=== PATIENT | male | born 1970 | race African-American/Black ===

== ENCOUNTER 2018-04-16 19:33 | Observation (INO) | payer SELFPAY ==
[2018-04-16 19:47] LABS: #Eosinphils 0.3 thou/uL (0.0-0.7); #Lymphocytes 1.8 thou/uL (1.20-3.40); #Monocytes 0.5 thou/uL (0.11-0.59); #Neutrophils 2.4 thou/uL (1.40-6.50); %Basophils 0.6 % (0.0-1.0); %Eosinophils 6.5 % (0.0-10.0); %Monocytes 9.6 % (0.0-10.0); %Neutrophils 47.4 % (42.0-75.0); Hemoglobin 14.1 g/dL (14.0-18.0); Mean Corpuscular HGB CONC 32.7 g/dL (32.0-36.0); Mean Corpuscular Hemoglobin 29.5 pg (27.0-31.0); Mean Corpuscular Volume 90.3 fL (78.0-98.0); Mean Platelet Volume 8.3 fL (7.4-10.4); Platelet Count 228 thou/uL (130-400); RBC Distribution Width 13.2 % (11.5-14.5); Red Blood Cell (RBC) Count 4.79 mill/uL (4.70-6.10); White Blood Cell (WBC) Count 5.1 thou/uL (4.8-10.8)
[2018-04-16 19:55] LABS: INR-International Normal Ratio 0.9; PTT 25.2 SEC (22.9-36.1); Prothrombin Time 12.4 SEC (12.0-14.7)
--- NOTE | 2018-04-16 20:01 | RAD ---
CHEST ONE VIEW: HISTORY: Pain. COMPARISON: None. FINDINGS: Normal cardiac silhouette. The pulmonary vessels and hilum are normal. The costophrenic angles are clear. No masses or consolidation. No pneumothorax or osseous abnormalities. IMPRESSION: No acute cardiopulmonary process. POS: [facility]
[2018-04-16 20:03] LABS: ALT (SGPT) 20 U/L (8-55); AST (SGOT) 22 U/L (5-34); Albumin 3.7 g/dL (3.5-5.0); Alkaline Phosphatase 43 U/L (40-150); Anion Gap 10 mmol/L (10-20); BUN (Urea Nitrogen) 14 mg/dL (8.9-20.6); Bilirubin, Total Less than 0.2 mg/dL (0.2-1.2); Calc. Creatinine Clearance 0 mL/min (70-130); Calcium 8.7 mg/dL (7.8-10.44); Carbon Dioxide 22 mmol/L (22-29); Chloride 109 mmol/L (98-107); Estimated GFR-MDRD 84; Globulin 2.1 g/dL (2.4-3.5); Glucose 117 mg/dL (70-105); Potassium 3.9 mmol/L (3.5-5.1); Protein, Total 5.8 g/dL (6.0-8.3); Sodium 137 mmol/L (136-145)
[2018-04-16 20:07] LABS: CKMB 3.5 ng/mL (0-6.6); Troponin I 0.042 ng/mL (< 0.028)
--- NOTE | 2018-04-16 20:36 | PDOC.FPRHP ---
- History of Present Illness Chief Complaint: chest pain History of Present Illness: This is a 47yo previously healthy M presenting for eval of CP. Onset was this afternoon while driving. Position R side/substernal with no radiation. Of dull/ pressure quality, initially rated at 8/10 in severity. EMS provided ASA and sublingual nitro x1 which relieved the pain to 0/10. Reportedly EKG via EMS showed 1mm ST elevation in several leads however EKG in ED shows no obvious elevation. Pt denies any hx of cardiac disease but has similar episodes of CP with exercise that is alleviated by rest. Of note pt went to the ED at the [facility] in february. Reports they did EKG, CXR, and labs that were only significant for an "enlarged heart" ED Course: nitro x1, ASA - Allergies/Adverse Reactions Allergies Allergy/AdvReac Type Severity Reaction Status Date / Time Penicillins Allergy itching Verified 04/16/18 22:20 - Home Medications Medication Instructions Recorded Confirmed Type No Known 04/16/18 04/16/18 History - History PMHx: none, does not go to doctor often PSHx: none FHx: DM, HTN, IN (mother of IN at 63yo) Social: 7 pack years for cigarettes, EtOH- weekly social drinking , denies drug use - Review of Systems General: denies: fever/chills, fatigue ENT: denies: nasal congestion, rhinorrhea Respiratory: denies: cough, congestion, shortness of breath Cardiovascular: denies: chest pain, palpitation, edema, paroxysmal nocturnal dyspnea, orthopnea Gastrointestinal: denies: nausea, vomiting Genitourinary: denies: dysuria, polyuria Skin: denies: rashes, lesions Musculoskeletal: denies: pain, tenderness Neurological: denies: syncope, seizure - Vital signs BP: [118/83] HR: [68] RR: [16] Tmax: [98.5] Pox: [98]% on [RA] Wt: [93] - Physical Exam Constitutional: NAD, awake, alert and oriented HEENT: normocephalic and atraumatic, EOMI, grossly normal vision, grossly normal hearing Neck: supple, trachea midline Chest: no-tender to palpation Heart: RRR, normal S1/S2, no murmurs/rubs/gallops, pulses present, no edema Lungs: CTAB, no respiratory distress, good air movement Abdomen: soft, non-tender Musculoskeletal: normal structure, normal tone Neurological: no focal deficit, normal sensation Skin: good turgor, capillary refill <2 seconds Heme/Lymphatic: no unusual bruising or bleeding, no purpura Psychiatric: normal mood and affect, good judgment and insight FMR H&P: Results - Labs Result Diagrams: 04/16/18 19:41 04/17/18 02:00 Lab results: WBC 5.1 thou/uL (4.8-10.8) 04/16/18 19:41 Hgb 14.1 g/dL (14.0-18.0) 04/16/18 19:41 Hct 43.2 % (42.0-52.0) 04/16/18 19:41 MCV 90.3 fL (78.0-98.0) 04/16/18 19:41 Plt Count 228 thou/uL (130-400) 04/16/18 19:41 Neutrophils % 47.4 % (42.0-75.0) 04/16/18 19:41 Sodium 137 mmol/L (136-145) 04/16/18 19:41 Potassium 3.9 mmol/L (3.5-5.1) 04/16/18 19:41 Chloride 109 mmol/L (98-107) H 04/16/18 19:41 Carbon Dioxide 22 mmol/L (22-29) 04/16/18 19:41 BUN 14 mg/dL (8.9-20.6) 04/16/18 19:41 Creatinine 1.12 mg/dL (0.6-1.3) 04/16/18 19:41 Glucose 117 mg/dL (70-105) H 04/16/18 19:41 Calcium 8.7 mg/dL (7.8-10.44) 04/16/18 19:41 Total Bilirubin Less than 0.2 mg/dL (0.2-1.2) L 04/16/18 19:41 AST 22 U/L (5-34) 04/16/18 19:41 ALT 20 U/L (8-55) 04/16/18 19:41 Alkaline Phosphatase 43 U/L (40-150) 04/16/18 19:41 CK-MB (CK-2) 3.5 ng/mL (0-6.6) 04/16/18 19:41 Serum Total Protein 5.8 g/dL (6.0-8.3) L 04/16/18 19:41 Albumin 3.7 g/dL (3.5-5.0) 04/16/18 19:41 FMR H&P: Upper Level - Pertinent history 47 yr old male smoker with no hx of medical care presents to the ER for chest pain. States it started this evening while driving to work and pulled over. Reports some SOB as well. Called EMS and pain went away after nitro. He reports a similar pain whie running in the past. He has smoked 1/2 ppd for last 15 years. Family hx significant for mother with DM and of IN at age 63. - Pertinent findings PE: Cardiac:: RRR, no M/R/G Lungs: CTAB, no W/R/R, good air movement Chest: non reproducible pain EKG: normal sinus rhythm with quetionable < [address] elevation in lead II. - Plan Date/Time: 04/16/182035 I, [Oxana Turner], have evaluated this patient and agree with findings/plan as outlined by international trade manager resident. Pertinent changes/additions are listed here. 47 yr old AAM with 7 pack year history here for chest pain. Typical angina -cardiology called from ER, no current intervention indicated -trend trops and recheck EKG for new pain -check lipids, mag, phos -AM fasting BMP -NPO after midnight -AM stress test -consult cards in AM -start statin -ASA qAM Tobacco abuse -offer nicotine patch -smoking cessation counseling Alcohol use -last drink yesterday -reports no use of alcohol use during the week DVT ppx: SCDs and lovenox unless plans for cath GI ppx: none code status: FULL PCP: none, city call Attending Addendum - Attending Addendum Date/Time: 04/17/18 0507 I personally evaluated the patient 04/16/2018 in ER and discussed the management with Dr. Silva I agree with the History, Examination, Assessment and Plan documented above with any addition or exceptions noted below. 47 yo AA male smoker with recent onset chest pain relieved with SL NTG. Patient heart score [address] changes anterior leads will be placed observation for trending with troponin and further stratification in AM
[2018-04-16] MEDS ORDERED: Ondansetron ODT 4 MG TAB SL PRN (21:59)
[2018-04-16] MEDS ORDERED: Ondansetron PF 4 MG/2 ML Vial IVP PRN (21:59)
[2018-04-16] MEDS ORDERED: Acetaminophen 325 MG TAB PO PRN (21:59)
[2018-04-16] MEDS ORDERED: Sodium Chloride 0.9% 1,000 ML IV SCH (22:00)
[2018-04-16 23:25] LABS: CKMB 3.5 ng/mL (0-6.6); Troponin I 0.204 ng/mL (< 0.028)
[2018-04-17 02:35] LABS: CKMB 3.1 ng/mL (0-6.6); Troponin I 0.158 ng/mL (< 0.028)
[2018-04-17 02:44] LABS: Anion Gap 10 mmol/L (10-20); BUN (Urea Nitrogen) 13 mg/dL (8.9-20.6); Calc. Creatinine Clearance 114 mL/min (70-130); Calcium 8.7 mg/dL (7.8-10.44); Carbon Dioxide 25 mmol/L (22-29); Chloride 109 mmol/L (98-107); Estimated GFR-MDRD Greater than 90; Glucose 106 mg/dL (70-105); Potassium 3.8 mmol/L (3.5-5.1); Sodium 140 mmol/L (136-145)
[2018-04-17] MEDS ORDERED: Atorvastatin Calcium 20 MG TAB PO SCH ×2 (03:15→21:00)
--- NOTE | 2018-04-17 06:11 | PDOC.FM ---
- Subjective Subjective: Feeling well. Chest pain has resolved. Eager to go home. - Objective MAR Reviewed: Yes Vital Signs & Weight: Vital Signs (12 hours) Temp Pulse Resp BP Pulse Ox 04/17/18 04:00 97.8 F 59 L 17 108/69 96 04/16/18 22:01 98.5 F 62 14 119/70 97 Weight Weight 94.12 kg I&O: 04/15/18 04/16/18 04/17/18 06:59 06:59 06:59 Intake Total 950 Output Total 1300 Balance -350 Result Diagrams: 04/16/18 19:41 04/17/18 02:00 <Nena Edwards - Last Filed: 04/17/18 13:29> - Objective Vital Signs & Weight: Vital Signs (12 hours) Temp Pulse Resp BP Pulse Ox 04/18/18 07:35 97.6 F 60 16 112/68 97 04/18/18 03:50 97.8 F 61 19 111/64 98 04/17/18 23:57 97.4 F L 57 L 15 110/55 L 96 Weight Weight 93.531 kg I&O: 04/17/18 04/18/18 04/19/18 06:59 06:59 06:59 Intake Total 950 2120 Output Total 1300 2080 Balance -350 40 Result Diagrams: 04/16/18 19:41 04/17/18 02:00 <Ge De La Cruz - Last Filed: 04/18/18 08:58> Phys Exam - Physical Examination Constitutional: NAD Neck: supple Respiratory: no wheezing, clear to auscultation bilateral Cardiovascular: RRR, no significant murmur Gastrointestinal: soft, non-tender, positive bowel sounds Musculoskeletal: no edema, pulses present Neurological: moves all 4 limbs Psychiatric: normal affect, A&O x 3 Deviation from normal: Multiple tattoos <Nena Edwards - Last Filed: 04/17/18 13:29> Dx/Plan (1) Elevated troponin Code(s): R74.8 - ABNORMAL LEVELS OF OTHER SERUM ENZYMES Status: Acute (2) Tobacco abuse Code(s): Z72.0 - TOBACCO USE Status: Chronic (3) Alcohol abuse Code(s): F10.10 - ALCOHOL ABUSE, UNCOMPLICATED Status: Chronic - Plan Plan: Typical angina - Cardiology called from ER, no current intervention indicated - Trops 0.042-> 0.204-> 0.158 - Mg, Ph, TSH, FLP wnl - NPO for stress test today - Consider Cardiology consult - Continue Atorvastatin and ASA - Will increase Atorvastatin to 40mg and decrease ASA to 81mg Tobacco abuse - Continue PRN nicotine patch - Encourage smoking cessation Alcohol use - Last drink 04/15 - No hx of withdrawal Code status: FULL DVT ppx: Lovenox <Nena Edwards - Last Filed: 04/17/18 13:29> Attending Addendum - Attending Addendum Date/Time: 04/18/18 0858 I personally evaluated the patient and discussed the management with Dr. Edwards. I agree with the History, Examination, Assessment and Plan documented above with any addition or exceptions noted below. <Ge De La Cruz - Last Filed: 04/18/18 08:58>
[2018-04-17 06:55] LABS: Cardiac Risk 3.4 (Less than 4.5); Magnesium 2.1 mg/dL (1.6-2.6); Phosphorus 2.8 mg/dL (2.3-4.7)
[2018-04-17] MEDS ORDERED: Aspirin 325 mg Enteric Coated Tablet PO SCH (09:00)
[2018-04-17] MEDS: Famotidine 20 MG TAB PO SCH ×2 (10:11→20:45)
--- NOTE | 2018-04-17 12:27 | NM ---
CARDIAC SPECT HISTORY: A 47-year-old male with chest pain. TECHNIQUE: A myocardial perfusion scan was performed using the single isotope one day with technetium 99m sestam ibi, and 11 millicuries was injected intravenously for the rest exam, followed by 33 millicuries for the stress study. Exercise stress was monitored and interpreted by Dr. Silva. FINDINGS: A homogeneous tracer distribution is seen in the myocardial segments on the rest images. There is a small area of decreased tracer localization in the distal anteroseptal wall, on the stress images. Gated SPECT LVEF: 60%. Wall motion exam: normal. IMPRESSION: Small area of distal anteroseptal wall ischemia with complete reversibility. POS: [facility]
[2018-04-17] MEDS ORDERED: Communication Order-Pharmacy FS SCH (14:45)
--- NOTE | 2018-04-17 18:30 | CON ---
DATE OF CONSULTATION: 04/17/2018 HISTORY: Je Almonte is a 47-year-old black male who denies any previous cardiac problems or chest discomfort. He was driving to work yesterday and had onset of central chest pressure. When he got to work and tried to get up and walk, he would have recurrence of this central chest pressure associated with shortness of breath and diaphoresis, but no nausea or vomiting. If he would sit and rest, discomfort would resolve in a few minutes. This scenario repeated itself multiple times and ultimately EMS was called. He was given aspirin as well as sublingual nitroglycerin and he has not had any further episodes since that time. Today, he underwent a treadmill testing and exercised for 10 minutes without chest pain or ST segment changes. Cardiolite revealed a small area of decreased radiotracer in the distal anteroseptal wall with complete reversibility. PAST MEDICAL HISTORY: He denies any history of hypertension, diabetes or hypercholesterolemia. MEDICATIONS: None. ALLERGIES: PENICILLIN. SOCIAL HISTORY: Smokes one half pack per day. He drinks 12 beers on the weekend. He works at [employer]. FAMILY HISTORY: Mother had myocardial infarction. REVIEW OF SYSTEMS: Twelve-point review of systems is unremarkable. PHYSICAL EXAMINATION: VITAL SIGNS: 106/67, pulse of 60. HEENT: PERRL. NECK: Supple. CHEST: Clear. CARDIAC: S1, S2 normal, without any S3, S4 or murmurs. Carotid upstrokes normal, without any bruits. ABDOMEN: Normal bowel sounds, without tenderness, organomegaly. EXTREMITIES: Revealed no clubbing, cyanosis or edema. NEUROLOGIC: Grossly intact. SKIN: Warm and dry. LABORATORY AND X-RAY FINDINGS: EKG revealed early repolarization with no acute findings. CBC is unremarkable. INR 0.9. Sodium 140, potassium 3.8, chloride 109, carbon dioxide 25, BUN 13, creatinine 1.04. Troponin I maximum is 0.204. CK-MB is normal x3. TSH is normal. Cholesterol 148, triglycerides 216, HDL 43 , LDL 62. IMPRESSION: 1. Probable acute coronary syndrome with exertional discomfort and diaphoresis with shortness of breath, relieved with rest, on multiple occasions yesterday. 2. Smoker. 3. Positive family history. 4. EtOH use. PLAN: The situation was discussed with patient. It was recommended he undergo cardiac catheterization. Risks of this were discussed including , myocardial infarction, stroke, transfusion, limb loss, renal loss, vascular injury, etc. Risks of stent placement were discussed including , myocardial infarction, emergent CABG, restenosis, stent thrombosis, vessel perforation, etc. I will place bare metal stents since I am uncertain of this patient's reliability long-term with lack of health insurance. STEFANIA
[2018-04-17] MEDS ORDERED: Atorvastatin Calcium 40 MG TAB PO SCH (21:00)
[2018-04-18 04:08] VITALS: BMI 31.3
[2018-04-18] MEDS: Famotidine 20 MG TAB PO SCH (05:24)
[2018-04-18] MEDS ORDERED: Sodium Chloride 0.9% 1,000 ML IV SCH ×2 (06:00→08:50)
[2018-04-18] MEDS ORDERED: Lidocaine 1% (PF) 30 ML VIAL ONE (06:24)
[2018-04-18] MEDS ORDERED: Heparin 10,000 UNITS/1 ML VIAL ONE (06:24)
--- NOTE | 2018-04-18 06:32 | PDOC.FM ---
- Subjective Subjective: Denies chest pain, shortness of breath. Understands plan for cardiac cath today. No questions or concerns. - Objective MAR Reviewed: Yes Vital Signs & Weight: Vital Signs (12 hours) Temp Pulse Resp BP Pulse Ox 04/18/18 03:50 97.8 F 61 19 111/64 98 04/17/18 23:57 97.4 F L 57 L 15 110/55 L 96 Weight Weight 93.531 kg I&O: 04/16/18 04/17/18 04/18/18 06:59 06:59 06:59 Intake Total 950 2120 Output Total 1300 2080 Balance -350 40 Result Diagrams: 04/16/18 19:41 04/17/18 02:00 <Nena Edwards - Last Filed: 04/18/18 09:02> - Objective Vital Signs & Weight: Vital Signs (12 hours) Temp Pulse Resp BP Pulse Ox 04/18/18 07:35 97.6 F 60 16 112/68 97 Weight Weight 93.531 kg I&O: 04/17/18 04/18/18 04/19/18 06:59 06:59 06:59 Intake Total 950 2120 700 Output Total 1300 2080 0 Balance -350 40 700 Result Diagrams: 04/16/18 19:41 04/17/18 02:00 <Ge De La Cruz - Last Filed: 04/18/18 15:55> Phys Exam - Physical Examination Constitutional: NAD Neck: supple Respiratory: no wheezing, clear to auscultation bilateral Cardiovascular: RRR, no significant murmur Gastrointestinal: soft, non-tender, positive bowel sounds Musculoskeletal: no edema Psychiatric: normal affect, A&O x 3 <Nena Edwards - Last Filed: 04/18/18 09:02> Dx/Plan (1) Elevated troponin Code(s): R74.8 - ABNORMAL LEVELS OF OTHER SERUM ENZYMES Status: Acute (2) Tobacco abuse Code(s): Z72.0 - TOBACCO USE Status: Chronic (3) Alcohol abuse Code(s): F10.10 - ALCOHOL ABUSE, UNCOMPLICATED Status: Chronic - Plan Plan: Typical angina - Trops 0.042-> 0.204-> 0.158 - Stress Test notable for reversible ischemia - Cardiology consulted, apprec recs - Continue Atorvastatin and ASA - Plan for heart cath today by Dr Silva Tobacco abuse - Continue PRN nicotine patch - Encourage smoking cessation Alcohol use - Last drink 04/15 - No hx of withdrawal Code status: FULL DVT ppx: Lovenox <Nena Edwards - Last Filed: 04/18/18 09:02> Attending Addendum - Attending Addendum Date/Time: 04/18/18 6946 I personally discussed the management with Dr. Edwards today. Mr. Almonte was unavailable for exam at time of rounds today. I agree with the History, Examination, Assessment and Plan documented above with any addition or exceptions noted below. <Ge De La Cruz - Last Filed: 04/18/18 15:55>
[2018-04-18] MEDS ORDERED: Midazolam HCl 2 mg/2 ml Vial ONE (07:58)
[2018-04-18] MEDS ORDERED: Fentanyl 100 MCG/2 ML VIAL ONE (07:58)
[2018-04-18] MEDS ORDERED: Bivalirudin 250 MG VIAL ONE (08:15)
[2018-04-18] MEDS ORDERED: Clopidogrel Bisulfate 300 MG TAB ONE (08:30)
[2018-04-18] MEDS ORDERED: Nitroglycerin 0.4 MG TAB (25 Tab Bottle) SL PRN (08:49)
[2018-04-18] MEDS ORDERED: Clopidogrel Bisulfate 75 MG TAB PO SCH (09:00)
[2018-04-18] MEDS ORDERED: Aspirin 81 mg Enteric Coated Tablet PO SCH (09:00)
[2018-04-18] MEDS ORDERED: Iopamidol 370 76% 50 ML VIAL FS ONE (12:56)
[2018-04-18] MEDS ORDERED: Iopamidol 370 76% 100 ML VIAL ONE (12:56)
--- NOTE | 2018-04-18 15:51 | EKG ---
Test Reason : POST STENTS Blood Pressure : / mmHG Vent. Rate : 055 BPM Atrial Rate : 055 BPM P-R Int : 202 ms QRS Dur : 102 ms QT Int : 434 ms P-R-T Axes : 053 008 -10 degrees QTc Int : [address] elevation, consider early repolarization, pericarditis, or injury Abnormal ECG Confirmed by HUSAM BARBOZA ([id number]) on 04/18/2018 3:50:50 PM Referred By: JONNY Confirmed By:HUSAM BARBOZA
[2018-04-18 16:03] VITALS: BP 112/63; TEMP 97.3
[2018-04-18] MEDS ORDERED: Acetaminophen 325 MG TAB PO PRN (16:39)
[2018-04-18] MEDS ORDERED: Atorvastatin Calcium 10 MG TAB PO SCH (21:00)
[2018-04-18] MEDS ORDERED: Atorvastatin Calcium 20 MG TAB PO SCH (21:00)
--- NOTE | 2018-04-19 01:26 | DIS-2 ---
DATE OF ADMISSION: 04/16/2018 DATE OF DISCHARGE: 04/18/2018 RESIDENT: Elle Edwards, PGY-1. ADMITTING ATTENDING: Mil Cote MD DISCHARGE ATTENDING: Ge De La Cruz M.D. CONSULTATIONS: Cardiology. PROCEDURES: 1. Chest x-ray, no acute cardiopulmonary process. 2. Stress test nuclear medicine small area of distal anterior septal wall ischemia with complete rev ersibility. 3. Cardiac catheterization one-vessel coronary artery disease, (left anterior descending) mildly imp aired ventricular function. Successful PCI/bare metal stent of the proximal to mid left anterior raheem cending coronary artery. PRIMARY DIAGNOSIS: Typical angina. SECONDARY DIAGNOSES: 1. Tobacco abuse. 2. Alcohol use. DISCHARGE MEDICATIONS: 1. Aspirin 81 mg daily. 2. Atorvastatin 20 mg at bedtime. 3. Pepcid 20 mg b.i.d. 4. Plavix 75 mg daily. 5. Metoprolol 12.5 mg daily. DISCONTINUED MEDICATIONS: None. HISTORY OF PRESENT ILLNESS AND HOSPITAL COURSE: Mr. Almonte is a 47-year-old male who presented with ty pical chest pain. EKG via EMS showed [address] elevation in several leads; however, EKG in the ED s howed no ST segment changes. Troponins were trended 0.042, 0.158. CK-MB was trended 3.5, 3.5, 3.1. A fasting lipid panel was unremarkable with the exception of elevated triglycerides 216. Stress adeline t that was performed, notable for reversible ischemia. Cardiology was consulted. Cardiac catheteriz ation was performed by Dr. Silva. Stent was placed in LAD. Patient tolerated procedure well. Patient has a history of tobacco and alcohol use. He has had no history of withdrawal, and hospitali zation was unremarkable. DISPOSITION: Stable. DISCHARGE INSTRUCTIONS: 1. Location: Home. 2. Diet: Heart healthy. 3. Activity: No restrictions. 4. Follow up with PCP within 3-7 days. 5. Follow up with Dr. Silva.
== END 2018-04-18 18:42 | disposition home or self-care (01) ==
LOC: ERS 19:33 → 2SW 20:23 → ERS 21:46
PROVIDERS: ADMIT Family Medicine; ATTEND Family Medicine
PROC: 02703DZ Dilation of Coronary Artery, One Artery with Intraluminal Device, Percutaneous Approach (ICD-10-PCS; principal; 2018-04-18)
PROC: 4A023N7 Measurement of Cardiac Sampling and Pressure, Left Heart, Percutaneous Approach (ICD-10-PCS; 2018-04-18)
PROC: B2111ZZ Fluoroscopy of Multiple Coronary Arteries using Low Osmolar Contrast (ICD-10-PCS; 2018-04-18)
DX: I25.119 Atherosclerotic heart disease of native coronary artery with unspecified angina pectoris (principal); F17.210 Nicotine dependence, cigarettes, uncomplicated; F10.10 Alcohol abuse, uncomplicated; Z79.82 Long term (current) use of aspirin; Z79.02 Long term (current) use of antithrombotics/antiplatelets; Z79.899 Other long term (current) drug therapy; Z88.0 Allergy status to penicillin
CPT/HCPCS: 36415; 71045; 78452; 80048; 80053; 80061; 82553; 83735; 84100; 84146; 84443; 84484; 85025; 85347; 85610; 85730; 90471; 90686; 90732; 92928; 93005; 93010; 93017; 93458; 99152; A9500; C1769; C1876; C1887; G0008; G0009; G0378; J0583; J1644; J2001; J2250; J3010

== ENCOUNTER 2018-04-24 17:45 | Inpatient (IN) | payer SELFPAY ==
[2018-04-24] MEDS ORDERED: Nitroglycerin 0.4 MG TAB (25 Tab Bottle) ONE (18:17)
[2018-04-24 18:34] LABS: #Basophils 0.1 thou/uL (0.0-0.2); #Eosinphils 0.5 thou/uL (0.0-0.7); #Lymphocytes 4.3 thou/uL (1.20-3.40); #Neutrophils 3.4 thou/uL (1.40-6.50); %Basophils 1.1 % (0.0-1.0); %Eosinophils 5.2 % (0.0-10.0); %Lymphocytes 46.4 % (21.0-51.0); %Monocytes 10.8 % (0.0-10.0); %Neutrophils 36.5 % (42.0-75.0); Mean Corpuscular HGB CONC 33.8 g/dL (32.0-36.0); Mean Corpuscular Hemoglobin 30.3 pg (27.0-31.0); Mean Corpuscular Volume 89.7 fL (78.0-98.0); Mean Platelet Volume 9.4 fL (7.4-10.4); Platelet Count 296 thou/uL (130-400); RBC Distribution Width 13.3 % (11.5-14.5); Red Blood Cell (RBC) Count 5.28 mill/uL (4.70-6.10); White Blood Cell (WBC) Count 9.2 thou/uL (4.8-10.8)
[2018-04-24 18:43] LABS: ALT (SGPT) 22 U/L (8-55); AST (SGOT) 22 U/L (5-34); Albumin 4.3 g/dL (3.5-5.0); Alkaline Phosphatase 55 U/L (40-150); Anion Gap 13 mmol/L (10-20); BUN (Urea Nitrogen) 13 mg/dL (8.9-20.6); Bilirubin, Total 0.3 mg/dL (0.2-1.2); Calc. Creatinine Clearance 0 mL/min (70-130); Carbon Dioxide 25 mmol/L (22-29); Chloride 103 mmol/L (98-107); Estimated GFR-MDRD 70; Globulin 2.7 g/dL (2.4-3.5); Glucose 116 mg/dL (70-105); Potassium 3.2 mmol/L (3.5-5.1); Sodium 138 mmol/L (136-145)
[2018-04-24 18:48] LABS: Troponin I Less than 0.010 ng/mL (< 0.028)
[2018-04-24] MEDS ORDERED: Morphine 4 MG/ML VIAL ONE ×2 (18:56→21:24)
--- NOTE | 2018-04-24 19:21 | RAD ---
CHEST ONE VIEW 04/24/18 INDICATION: High risk complaint of chest pain. COMPARISON: Prior exam dated 04/16/18. FINDINGS: Lungs are clear. Cardiomediastinal silhouette is within normal limits. No acute osseous abnormality i s evident. IMPRESSION: No acute cardiopulmonary abnormality. POS: [facility]
[2018-04-24] MEDS ORDERED: Nitroglycerin 50 MG/250 ML BOT 250 ML ONE (19:24)
[2018-04-24] MEDS ORDERED: Fentanyl 100 MCG/2 ML VIAL ONE (19:58)
[2018-04-24 20:36] LABS: Bilirubin Negative (Negative); Blood, Urine Negative (Negative); Clarity CLEAR (Clear); Glucose, Urine (Dipstick) Negative (Negative); Leukocyte Negative (Negative); Nitrite Negative (Negative); Protein, Urine (Dipstick) Trace mg/dL (Neg-Trace); Specific Gravity, Urine 1.014 (1.002-1.036); Urobilinogen 0.2 mg/dL (0.2-1.0)
[2018-04-24 20:47] LABS: Amphetamine Not Detected (NotDetected); Barbiturates Screen Not Detected (NotDetected); Benzodiazepine Screen Not Detected (NotDetected); Cocaine Metabolite Screen Not Detected (NotDetected); Medtox Control Line Valid? VALID (VALID); Medtox Reader # READER 1; Methadone Not Detected (NotDetected); Methamphetamine Not Detected (NotDetected); Opiate Screen Detected (NotDetected); Oxycodone Screen Not Detected (NotDetected); Phencyclidine (PCP) Not Detected (NotDetected); THC/Cannabinoid Screen Not Detected (NotDetected); Tricyclic Screen Not Detected (NotDetected)
[2018-04-24 22:18] LABS: Troponin I 0.675 ng/mL (< 0.028)
[2018-04-24] MEDS ORDERED: Ondansetron ODT 4 MG TAB SL PRN (22:51)
[2018-04-24] MEDS ORDERED: Ondansetron PF 4 MG/2 ML Vial IVP PRN (22:51)
[2018-04-24] MEDS ORDERED: Acetaminophen 325 MG TAB PO PRN (22:51)
[2018-04-24 23:10] VITALS: BMI 32.7
[2018-04-24] MEDS: Nitroglycerin 2% Ointment 1 INCH/1 GM Packet TOP SCH (23:43)
[2018-04-24] MEDS: Sodium Chloride 0.9% 1,000 ML IV SCH (23:43)
[2018-04-24 23:56] LABS: Cardiac Risk 2.6 (Less than 4.5)
[2018-04-25] MEDS ORDERED: Enoxaparin Sodium 100 MG/ML SYRINGE SC SCH ×2 (00:15→09:00)
[2018-04-25 01:00] LABS: Troponin I 4.032 ng/mL (< 0.028)
[2018-04-25] MEDS ORDERED: Morphine 4 MG/ML VIAL IV PRN (01:28)
[2018-04-25] MEDS: Morphine 2 MG/ML SYRINGE SLOW IVP PRN ×2 (01:57→09:54)
[2018-04-25 04:23] LABS: #Lymphocytes 1.1 thou/uL (1.20-3.40); #Monocytes 0.6 thou/uL (0.11-0.59); #Neutrophils 7.1 thou/uL (1.40-6.50); %Basophils 0.4 % (0.0-1.0); %Eosinophils 0.5 % (0.0-10.0); %Lymphocytes 12.8 % (21.0-51.0); %Monocytes 6.4 % (0.0-10.0); %Neutrophils 79.9 % (42.0-75.0); Mean Corpuscular HGB CONC 31.8 g/dL (32.0-36.0); Mean Corpuscular Hemoglobin 29.2 pg (27.0-31.0); Mean Corpuscular Volume 91.8 fL (78.0-98.0); Mean Platelet Volume 9.4 fL (7.4-10.4); Platelet Count 270 thou/uL (130-400); RBC Distribution Width 13.2 % (11.5-14.5); Red Blood Cell (RBC) Count 5.15 mill/uL (4.70-6.10); White Blood Cell (WBC) Count 8.9 thou/uL (4.8-10.8)
[2018-04-25 05:38] LABS: Albumin 4.3 g/dL (3.5-5.0); Anion Gap 13 mmol/L (10-20); BUN (Urea Nitrogen) 12 mg/dL (8.9-20.6); BUN/Creatinine Ratio 10.91; Calc. Creatinine Clearance 112 mL/min (70-130); Calcium 9.2 mg/dL (7.8-10.44); Carbon Dioxide 26 mmol/L (22-29); Chloride 100 mmol/L (98-107); Estimated GFR-MDRD 86; Glucose 117 mg/dL (70-105); Phosphorus 2.9 mg/dL (2.3-4.7); Potassium 5.6 mmol/L (3.5-5.1); Sodium 133 mmol/L (136-145)
[2018-04-25] MEDS ORDERED: Nitroglycerin 2% Ointment 1 INCH/1 GM Packet TOP SCH (06:00)
[2018-04-25] MEDS: Nitroglycerin 2% Ointment 1 INCH/1 GM Packet TOP SCH (08:39)
[2018-04-25] MEDS: Famotidine 20 MG TAB PO SCH ×2 (08:39→20:28)
[2018-04-25] MEDS: Sodium Chloride 0.9% 1,000 ML IV SCH (08:40)
--- NOTE | 2018-04-25 08:44 | HP ---
CHIEF COMPLAINT: Chest pain. HISTORY OF PRESENT ILLNESS: This is a 47-year-old male with past medical history of coronary artery disease status post stents x3, presenting with chest pain which started at 4:00 p.m. on the day of ad mission. Per the patient, the chest pain came on suddenly, was located on the substernal chest and i t was pressure-like in nature, did not radiate to any part of his body. The patient stated that the chest pain was constant and for the last hour prior to the chest pain coming on, he was arguing his d aughter and the patient then came to the hospital to be evaluated. At this point, the patient denies any fever, headaches, dizziness, palpitations, abdominal pain; however, the patient admits to having some shortness of breath and diaphoresis and chest pain. Of note, the patient was seen on last week Monday prior to this visit and the patient had chest pa in, so a cardiac catheterization was done and there was stenosis in the LAD and RCA and 3 stents were placed by bulk folder. REVIEW OF SYSTEMS: Positive for chest pain, diaphoresis and shortness of breath, otherwise as docume nted in the HPI. All other systems were reviewed and are negative. FAMILY HISTORY: Reviewed, noncontributory to this visit. SURGICAL HISTORY: Stents x3. PSYCHIATRIC HISTORY: No previous psychiatric history. SOCIAL HISTORY: The patient currently smokes cigarettes. Patient smokes about a pack per day. The patient denies any illicit drug use. The patient states that he drinks occasionally. ALLERGIES: PENICILLINS. CURRENT MEDICATIONS: The patient takes atorvastatin 20 mg, aspirin 81 mg, clopidogrel 75 mg, Pepcid 20 mg and metoprolol 25 mg. PHYSICAL EXAMINATION: VITAL SIGNS: Blood pressure 119/85, pulse is 97, respiratory rate of 30, O2 sat of 100 on room air. GENERAL: The patient is lying in bed, does not appear to be in any acute distress at this time. HEENT: Normocephalic, atraumatic. Pupils are equally round and reactive to light. Extraocular move ments are intact. No scleral icterus. NECK: Trachea is midline. Full range of motion. No JVD. LUNGS: Clear to auscultation bilaterally. No wheezing. No rales, no rhonchi is appreciated. CARDIOVASCULAR: Regular rate and rhythm, no murmurs, no gallops, no rubs appreciated. ABDOMEN: Soft, nontender, nondistended, positive bowel sounds in all quadrants. No peritoneal signs . EXTREMITIES: 5/5 upper extremity strength, 5/5 lower extremity strength, good pulses bilaterally at the upper and lower extremities. NEUROLOGIC: Cranial nerves II-XII grossly intact. No neurologic deficit noted. SKIN: Warm, dry and intact. No rashes. PSYCHIATRIC: Alert, oriented x3, not in acute distress. EKG showed normal sinus rhythm with a rate of 49. T waves peaked in V3 and V4. Compared to previous EKG this is unchanged. Three other EKGs were done and the patient's EKG has progressively gotten be tter. IMAGING: The patient's chest x-ray shows no pneumothorax, no hemothorax, no masses, no cardiomegaly, no congestive heart failure. No effusion, no free air. EMERGENCY DEPARTMENT COURSE: The patient received morphine, fentanyl, normal saline, nitroglycerin, aspirin. LABORATORY DATA: WBC 9.2, hemoglobin 16.0, hematocrit 47.3, platelets 296. Sodium 138, potassium is 3.2, chloride 103, carbon dioxide 25, anion gap of 13, BUN is 13, creatinine is 1.32, estimated GFR 70, glucose 116. Troponin is less than 0.010, repeat troponin was 0.675 and the third troponin was 4 .032. ASSESSMENT AND PLAN: 1. This is a 47-year-old male being admitted for [id number] elevation myocardial infarction. At this point, the patient has been admitted to the IMCU. We have consulted Cardiology. The patient h as been started on aspirin, Plavix, Lovenox and metoprolol. We are going to continue these medicatio ns and bulk folder will come and evaluate the patient in the morning. We are going to make the livan ent n.p.o. just in case if the patient is going to go for cardiac catheterization. Of note, the livan ent recently had a cardiac catheterization done a week ago; therefore, we are unsure what Cardiology recommendation is going to be referred. We will follow up with bulk folder regarding their recommen dation. 2. Chest pain, status post stents x3. Currently, the patient is having chest pain and the patient h as elevated troponins. We will continue the patient on his home medications and we will continue to monitor the patient very closely. The patient has been admitted to the IM. 3. Deep venous thrombosis and gastrointestinal prophylaxis. 4. Acute kidney injury likely due to dehydration. Patient is currently on normal saline. We will c ontinue this management. We will follow up on morning labs. 5. Electrolyte abnormality We will replete the patient's potassium and will follow up on morning lab s.
[2018-04-25] MEDS ORDERED: Aspirin 81 mg Enteric Coated Tablet PO SCH (09:00)
[2018-04-25] MEDS ORDERED: Clopidogrel Bisulfate 75 MG TAB PO SCH (09:00)
[2018-04-25] MEDS ORDERED: Lidocaine 1% (PF) 30 ML VIAL ONE (10:07)
[2018-04-25] MEDS ORDERED: Heparin 10,000 UNITS/1 ML VIAL ONE ×3 (10:15→12:08)
[2018-04-25] MEDS ORDERED: Fentanyl 100 MCG/2 ML VIAL ONE (10:30)
[2018-04-25] MEDS ORDERED: Midazolam HCl 2 mg/2 ml Vial ONE (10:37)
[2018-04-25] MEDS ORDERED: Iopamidol 370 76% 100 ML VIAL ONE (10:43)
[2018-04-25] MEDS ORDERED: Iopamidol 370 76% 50 ML VIAL FS ONE (10:43)
[2018-04-25] MEDS ORDERED: TICAGRELOR 90 MG TABLET ONE (10:45)
[2018-04-25] MEDS ORDERED: Aggrastat 12.5 MG/250 ML 250 ML ONE (10:48)
[2018-04-25] MEDS ORDERED: Nitroglycerin 0.4 MG TAB (25 Tab Bottle) SL PRN (11:39)
[2018-04-25] MEDS ORDERED: Morphine 2 MG/ML SYRINGE SLOW IVP PRN (11:39)
[2018-04-25] MEDS ORDERED: Sodium Chloride 0.9% 1,000 ML IV SCH (11:42)
[2018-04-25] MEDS ORDERED: Aggrastat 12.5 MG/250 ML 250 ML IVPB SCH (11:45)
--- NOTE | 2018-04-25 12:20 | CON ---
DATE OF CONSULTATION: 04/25/2018 HISTORY OF PRESENT ILLNESS: Je Almonte is a 47-year-old black male that I initially evaluated last week. He was driving to work on 04/16/2018 started having onset of central chest pressure. He got to work and tried to get up and walk; however, every time he would try to walk, he would have recurrence of the central chest pressure associated with shortness of breath, diaphoresis, no nausea or vomiting. If he would sit and rest the discomfort would resolve in a few minutes. This scenario repeated itself multiple times and coworkers called EMS. He was given aspirin as well as sublingual nitroglycerin. He did not have any further episodes of chest discomfort. He underwent Cardiolite treadmill testing, exercised for 10 minutes without chest pain or ST segment changes. Cardiolite revealed a small area of decreased radiotracer in the distal anteroseptal wall with complete reversibility compatible with ischemia. He then underwent a cardiac catheterization. He had mild anterior hypokinesis. In the LAD there was an 80% proximal stenosis and a 70 and 60% mid stenosis. There was 30% mid RCA stenosis. He underwent placement of 2 stents in the left anterior descending - Rebel (bare metal stent) 3.0 x 32 and 3.0 x 8. Final result was excellent and he was discharged the following day. Since being home he denies any chest discomfort until yesterday. He states that he was taking all of his medications including aspirin and Plavix. He has continued to intermittently smoke. Yesterday he began to have onset of central chest pressure associated with shortness of breath, diaphoresis after an argument with his daughter. He came to the emergency room approximately 3 hours later. He had new Q-waves V1-V3 along with somewhat hyperacute T waves with 2 mm elevation in V4. The anterior septal Q-waves are new from EKG the week before. His initial cardiac enzymes were normal and now they have started to trend upwards. He stated the pain lasted from 4:00 p.m. until approximately 3:00 a.m. this morning. At the present time, he denies any chest discomfort. He just received a dose of Lovenox 1 mg/kg less than 1 hour ago. PAST MEDICAL HISTORY: No history of hypertension, hypercholesterolemia or diabetes. MEDICATIONS: Aspirin 81 daily, Plavix 75 mg daily, metoprolol ER 12.5 q.a.m., Pepcid 20 b.i.d., atorvastatin 20 at bedtime. ALLERGIES: PENICILLIN. SOCIAL HISTORY: He smoked 1 pack per day, but states he has continued to have cigarettes since he went home. He drinks 12 beers on the weekend. He works at [employer]. FAMILY HISTORY: Mother had myocardial infarction. REVIEW OF SYSTEMS: Twelve point review of systems otherwise unremarkable. PHYSICAL EXAMINATION: VITAL SIGNS: Blood pressure 143/94, pulse of 69. HEENT: PERRL. CHEST: Clear. CARDIAC: S1, S2 normal, without any S3, S4 or murmurs. Carotid upstrokes normal without bruits. ABDOMEN: Normal bowel sounds, without tenderness or organomegaly. EXTREMITIES: Revealed no clubbing, cyanosis or edema. NEUROLOGIC: Grossly intact. SKIN: Warm and dry. LABORATORY DATA: EKG from this morning shows new Q-waves in V1 through V4. They were not present on EKG 1 week ago. His admission EKG also showed anterior septal Q-waves. There was a 1-[address] elevation in V2-V4. Initial troponin I was normal. It has now gone up to 4.032. Cholesterol 148, triglycerides 109, HDL 58, LDL 68. Sodium 133, potassium 5.6, chloride 100, carbon dioxide 26, BUN 12, creatinine 1.10. CBC is unremarkable. IMPRESSION: 1. New Q-waves on admission EKG compared to EKG from 1 week ago. He also initially had hyperacute T waves, some ST segment elevation in certain leads. I would imagine that he has probably had acute stent thrombosis. 2. Smoker. 3. Positive family history. 4. Hypercholesterolemia. PLAN: The situation was discussed with patient and his . It was recommended he undergo cardiac catheterization. Risks again were discussed including , myocardial infarction, dye reaction, vascular injury, CVA, transfusion, limb loss, renal loss, etc. Also, risk of intervention with PTCA and stent placement were discussed including , myocardial infarction, emergent CABG, restenosis, stent thrombosis, vessel perforation, etc. He agrees to proceed. He just received Lovenox, however I feel that he has acute stent thrombosis and needs to go to the chemical lab technician now. Will just need to keep his sheath in for 10-12 hours. Addendum: In the chemical lab technician, he stated he did not take his meds for 2-3 days, probable cause of stent thrombosis. VIPIND
--- NOTE | 2018-04-25 12:40 | EKG ---
Test Reason : STAT Blood Pressure : / mmHG Vent. Rate : 062 BPM Atrial Rate : 062 BPM P-R Int : 166 ms QRS Dur : 092 ms QT Int : 404 ms P-R-T Axes : 052 008 042 degrees QTc Int : 410 ms Normal sinus rhythm Yao/ Septal infarct , age undetermined Abnormal ECG When compared with ECG of 18-APR-2018 09:00, Septal infarct is now Present T wave inversion no longer evident in Inferior leads Confirmed by DR. Shena MARK ([id number]) on 04/25/2018 12:40:13 PM Referred By: KAREN Confirmed By:DR. Shena MARK
--- NOTE | 2018-04-25 12:43 | EKG ---
Test Reason : Blood Pressure : / mmHG Vent. Rate : 062 BPM Atrial Rate : 062 BPM P-R Int : 172 ms QRS Dur : 090 ms QT Int : 412 ms P-R-T Axes : 048 052 016 degrees QTc Int : 418 ms Normal sinus rhythm Anterolateral infarct (cited on or before 24-APR-2018) * ACUTE [place] * Abnormal ECG When compared with ECG of 25-APR-2018 01:48, (Unconfirmed) Serial changes of Anterior infarct Present Confirmed by DR. Shena MARK ([id number]) on 04/25/2018 12:43:40 PM Referred By: JONNY Confirmed By:DR. Shena MARK
[2018-04-25 13:04] LABS: CKMB 342.3 ng/mL (0-6.6); Troponin I 131.976 ng/mL (< 0.028)
--- NOTE | 2018-04-25 18:01 | PRG ---
DATE OF SERVICE: 04/25/2018 SUBJECTIVE: The patient is seen and examined at bedside. He is feeling significantly better this mo rning. The pain has gone and he does not have much complaints to offer. OBJECTIVE: VITAL SIGNS: Blood pressure is 143/94, pulse is 69, temperature 98.4, respirations 15, O2 saturation 93 on room air. HEENT: Nontraumatic, normocephalic. Eyes are PERRLA. Sclerae nonicteric. Oral mucosa is moist. NECK: Supple. LUNGS: Clear. HEART: S1, S2 normal, no S3, no S4. ABDOMEN: Soft, nontender, bowel sounds are present, no organomegaly. EXTREMITIES: No clubbing, cyanosis, or edema. NEUROLOGIC: He is alert and oriented x3. There is not any motor deficits or sensory deficit present . Cranial nerves are intact. LABORATORY DATA: Showed normal CBC. Sodium of 133, potassium 5.6, chloride 100, CO2 of 26, creatini ne 1.1, glucose 117. Troponin I 4.03, albumin 4.3. IMPRESSION: 1. Non-ST segment elevation myocardial infarction, improved clinically. Cardiology is consulted, on aspirin and Plavix and Lovenox and metoprolol. 2. Status post stenting x3 just recently a few days ago. 3. Acute kidney injury, most likely due to dehydration. 4. Hyperkalemia. 5. Nonsustained wide complex tachycardia, several beats this morning. PLAN: Use Kayexalate to decrease his potassium, although it is not very elevated, but it might be a cause of his wide complex tachycardia. We will check his magnesium level. We are waiting for Cardio logy to make a decision about the next step. For now, we will continue his current regimen since he improved clinically.
[2018-04-25 19:25] LABS: Troponin I 141.751 ng/mL (< 0.028)
[2018-04-25] MEDS: TICAGRELOR 90 MG TABLET PO SCH (20:29)
[2018-04-25] MEDS: Atorvastatin Calcium 20 MG TAB PO SCH (20:29)
[2018-04-25] MEDS ORDERED: Atorvastatin Calcium 40 MG TAB PO SCH (21:00)
--- NOTE | 2018-04-25 21:59 | CON ---
DATE OF CONSULTATION: 04/25/2018 HISTORY OF PRESENT ILLNESS: Mr. Almonte is a 47-year-old with coronary artery disease. He recently had coronary stenting. Apparently presented this morning with chest pain. He is going to the slab installer and had undergone angioplasty, I am told. Apparently, he has been noncompliant with smoking cessation and taking his medicine since he was discharged from the hospital. Last visit, he had 2 stents placed in the LAD. Both were bare metal. PAST MEDICAL HISTORY: Otherwise unremarkable. SOCIAL HISTORY: He is a smoker. Drinks beer regularly. Works at [employer]. ALLERGIES: Reports allergies to PENICILLIN. FAMILY HISTORY: Positive for vascular disease. REVIEW OF SYSTEMS: Ten-point review of system is otherwise negative. He denies having chest pain at this time. PHYSICAL EXAMINATION: VITAL SIGNS: His heart rate is 79, respiratory rate 20, oximetry is 93%, blood pressure 141/79. HEENT: Pupils are equal. Sclerae is anicteric. NECK: Supple. no lymph nodes. LUNGS: Clear. HEART: Regular rhythm. S1 and S2 are normal. ABDOMEN: Soft and nontender. EXTREMITIES: No clubbing, cyanosis, or edema. LABORATORY DATA: White count 8.9, hemoglobin 15, platelets 270,000. Troponins up to 131 today. Sodium 133, potassium 5.6, chloride 100, bicarbonate 26, BUN 12, creatinine 1.1. IMPRESSION: 1. Myocardial infarction, status post angioplasty today, but no other stents being placed. 2. Noncompliance with medications and smoking cessation. He was again counseled about this. He appears medically stable at this point in time. We will keep him in the Critical Care Unit for now. STEFANIA
[2018-04-26 04:22] LABS: #Lymphocytes 1.5 thou/uL (1.20-3.40); #Neutrophils 8.2 thou/uL (1.40-6.50); %Basophils 0.1 % (0.0-1.0); %Eosinophils 0.2 % (0.0-10.0); %Lymphocytes 14.3 % (21.0-51.0); %Monocytes 9.3 % (0.0-10.0); %Neutrophils 76.1 % (42.0-75.0); Hemoglobin 15.2 g/dL (14.0-18.0); Mean Corpuscular HGB CONC 32.9 g/dL (32.0-36.0); Mean Corpuscular Volume 91.2 fL (78.0-98.0); Mean Platelet Volume 9.6 fL (7.4-10.4); Platelet Count 232 thou/uL (130-400); RBC Distribution Width 13.3 % (11.5-14.5); Red Blood Cell (RBC) Count 5.07 mill/uL (4.70-6.10); White Blood Cell (WBC) Count 10.8 thou/uL (4.8-10.8)
[2018-04-26 05:02] LABS: ALT (SGPT) 84 U/L (8-55); AST (SGOT) 330 U/L (5-34); Albumin 3.9 g/dL (3.5-5.0); Alkaline Phosphatase 55 U/L (40-150); Anion Gap 13 mmol/L (10-20); BUN (Urea Nitrogen) 10 mg/dL (8.9-20.6); Calc. Creatinine Clearance 115 mL/min (70-130); Calcium 9.4 mg/dL (7.8-10.44); Carbon Dioxide 25 mmol/L (22-29); Chloride 103 mmol/L (98-107); Estimated GFR-MDRD 88; Globulin 2.8 g/dL (2.4-3.5); Glucose 105 mg/dL (70-105); Protein, Total 6.7 g/dL (6.0-8.3); Sodium 137 mmol/L (136-145)
--- NOTE | 2018-04-26 07:47 | EKG ---
Test Reason : POST ANGIOPLASTY Blood Pressure : / mmHG Vent. Rate : 081 BPM Atrial Rate : 081 BPM P-R Int : 162 ms QRS Dur : 086 ms QT Int : 388 ms P-R-T Axes : 065 053 008 degrees QTc Int : 450 ms Normal sinus rhythm Anterolateral infarct (cited on or before 24-APR-2018) * ACUTE [place] * Abnormal ECG When compared with ECG of 25-APR-2018 08:07, No significant change was found Confirmed by DR. Shena MARK (3) on 04/26/2018 7:47:13 AM Referred By: JONNY Confirmed By:DR. Shena MARK
[2018-04-26] MEDS: TICAGRELOR 90 MG TABLET PO SCH ×2 (09:48→20:33)
[2018-04-26] MEDS: Famotidine 20 MG TAB PO SCH ×2 (09:48→20:33)
--- NOTE | 2018-04-26 09:53 | PRG ---
DATE OF SERVICE: 04/26/2018 SUBJECTIVE: The patient is seen and examined at bedside. He is doing better. He does not have much complaints to offer thus he does not have any chest pain. OBJECTIVE: VITAL SIGNS: Blood pressure is 110/56, pulse is 93, respiratory rate is 21, O2 saturation is 99%. HEENT: Head is atraumatic, normocephalic. Eyes are PERRLA. Sclerae nonicteric. Oral mucosa is bette st. NECK: Supple. LUNGS: Few crackles bilaterally. HEART: S1, S2 normal, no S3, no S4, no murmur. ABDOMEN: Soft, nontender, nondistended. Bowel sounds are present. EXTREMITIES: No clubbing, cyanosis or edema. NEUROLOGIC: Intact. LABORATORY DATA: Showed normal CBC, normal chemistry except for AST at 330 and ALT 84. His last tro ponin went up to 141.751 and the previous one was 131.976 at 12:00 yesterday. The rest of chemistry within normal limits. IMPRESSION: 1. Acute anterolateral myocardial infarction. The patient was taken to the cathode maker by Dr. Silva yesterday morning. He did not put any additional stents. 2. Status post stenting x3 recently. 3. Acute kidney injury, improved with IV fluids. 4. Hyperkalemia, corrected. 5. Nonsustained wide complex tachycardia yesterday, not recurrent. 6. Elevated liver function test, AST and ALT of unclear etiology, will be followed. 7. Hemoptysis since yesterday, mild. PLAN: Obtain the chest x-ray. The patient was taken to the cathode maker yesterday and we are awaiting f or final report from Dr. Silva on the procedure which was done, but we know that there was no more stenting. We will continue his metoprolol succinate 12.5 mg once a day. He will continue on his Br ilinta 90 mg twice a day, aspirin 81 mg once a day, and atorvastatin 20 mg at bedtime. DVT prophylax is with SCDs and most likely he will be moved to the telemetry floor in the next 24 hours.
--- NOTE | 2018-04-26 10:49 | RAD ---
PORTABLE CHEST ONE VIEW: History: 47-year-old male with history of hemoptysis. FINDINGS: There is some subtle patchy perihilar ground glass opacity changes. Monitor leads overlie the chest. Heart size is within normal limits. IMPRESSION: Subtle bilateral perihilar ground glass opacities, nonspecific. No confluent pneumonia or pleural eff usion. Depending upon concern, consider follow up chest CT scan. POS: TAWNY
--- NOTE | 2018-04-26 17:06 | EKG ---
Test Reason : Blood Pressure : / mmHG Vent. Rate : 094 BPM Atrial Rate : 094 BPM P-R Int : 144 ms QRS Dur : 088 ms QT Int : 336 ms P-R-T Axes : 064 050 050 degrees QTc Int : 420 ms Normal sinus rhythm Anterolateral infarct (cited on or before 24-APR-2018) * ACUTE [place] * Abnormal ECG When compared with ECG of 25-APR-2018 12:42, Serial changes of Anterior infarct Present Confirmed by DR. Shena MARK (3) on 04/26/2018 5:05:48 PM Referred By: JONNY Confirmed By:DR. Shena MARK
[2018-04-26] MEDS: Atorvastatin Calcium 20 MG TAB PO SCH (20:33)
--- NOTE | 2018-04-26 23:58 | CCL ---
PROCEDURE: Coronary arteriography, thrombectomy, PTCA of previous stents. INDICATION: Acute stent thrombosis. The patient was brought to the cardiac lab engineer. The right groin was prepped and draped. He then ad mitted that he had not taken any of his medications for two days or as he told me on the floor that he had not missed any of his medications. 1% lidocaine was infiltrated. A 6-Andorran sheath placed in the right femoral artery. A 6-[place]orran left 4 guide catheter was inserted. The stent was totally occ luded. A floppy choice wire would not cross the thrombotic area. An extra support wire was used and the area was crossed. The stent was then dilated with an Emerge NC 3.0 x 30 mm balloon. There appe ared to be a large thrombus proximal to the stent. The balloon was carefully removed and an [place] c atheter was inserted. Three passes were made with removal of large amount of thrombotic material. T he patient also had been given intravenous heparin during the case. Aggrastat bolus and drip also we re given. The patient was given Brilinta 180 mg. The PTCA balloon was then reinserted and inflated up to 18 atmospheres to 20 atmospheres. This was t hen removed. Final result was excellent. The decision was made to change to Brilinta in case he neri s not probably metabolize Plavix; however, the probable cause is that he did not take his medications . IMPRESSION: .1. One vessel coronary artery disease (LAD). 2. Successful PTCA and thrombectomy of acute stent thrombosis.
[2018-04-27] MEDS ORDERED: Benzonatate 100 MG CAP PO SCH (03:00)
[2018-04-27 05:33] LABS: ALT (SGPT) 52 U/L (8-55); AST (SGOT) 118 U/L (5-34); Albumin 3.8 g/dL (3.5-5.0); Alkaline Phosphatase 50 U/L (40-150); Anion Gap 12 mmol/L (10-20); BUN (Urea Nitrogen) 9 mg/dL (8.9-20.6); Bilirubin, Total 1.5 mg/dL (0.2-1.2); Calc. Creatinine Clearance 106 mL/min (70-130); Calcium 9.4 mg/dL (7.8-10.44); Carbon Dioxide 24 mmol/L (22-29); Chloride 104 mmol/L (98-107); Estimated GFR-MDRD 80; Glucose 102 mg/dL (70-105); Potassium 3.7 mmol/L (3.5-5.1); Protein, Total 6.8 g/dL (6.0-8.3); Sodium 136 mmol/L (136-145)
[2018-04-27] MEDS: Famotidine 20 MG TAB PO SCH (08:41)
[2018-04-27] MEDS: TICAGRELOR 90 MG TABLET PO SCH (08:41)
--- NOTE | 2018-04-27 13:38 | PRG ---
DATE OF SERVICE: 04/27/2018 SUBJECTIVE: The patient is seen and examined at bedside. He is doing very well. He does not have [facility] complaints to offer. There is no chest pain, no shortness of breath. He is sitting in the chair and reading the paper. OBJECTIVE: VITAL SIGNS: Blood pressure is 108/72, pulse is 81, temperature 98.2, respiration rate 16, O2 satura tion is 96% on room air. HEENT: Head is atraumatic, normocephalic. Eyes are PERRLA, sclerae is nonicteric. Oral mucosa is m oist. NECK: Supple. LUNGS: Clear. HEART: S1, S2 normal, no S3, no S4, no murmur. ABDOMEN: Soft and nontender. Bowel sounds are present, no organomegaly. EXTREMITIES: No clubbing, cyanosis or edema. NEUROLOGIC: He is alert and oriented x4. There is not any motor or sensory deficits. LABORATORY DATA: Showed normal electrolytes, normal BUN and creatinine 1.17, total bilirubin 1.5, T 118, ALT 52. The rest of chemistry within normal limits. X-ray of his chest done yesterday showed some subtle bilateral perihilar ground glass opacities which are nonspecific. IMPRESSION: 1. Acute anterolateral myocardial infarction, status post thrombectomy and percutaneous transluminal coronary angioplasty to the clotted stent. The patient is on Brilinta 90 mg twice a day for 1 year and he is to continue on metoprolol succinate 12.5 mg once a day along with atorvastatin 20 at bedtim e, and aspirin 81 mg once a day. 2. Status post recent stenting x3. 3. Acute kidney injury, improved with IV fluids. 4. Hypokalemia, corrected. 5. Nonsustained wide complex tachycardia. 6. Elevated liver function tests, improving with time. Most likely related to some ischemic event. 7. Hemoptysis, resolved was normal finding of the chest x-ray. PLAN: Continue current regimen, metoprolol and Brilinta, aspirin and statin, and Dr. Ricardo gorman octavio a decision about further management as per Cardiology. We will do DVT prophylaxis with sequentia l compression devices.
[2018-04-27 16:03] VITALS: BP 117/75; TEMP 97.9
== END 2018-04-27 18:16 | disposition home or self-care (01) | DRG 251 ==
LOC: ERS 17:45 → IMCU/EMU 22:44 → OBSVTOIN 23:13 → CCU 04-25 12:09 → 2NO 04-26 14:37
PROVIDERS: ADMIT Internal Medicine; ATTEND Internal Medicine
PROC: 02703ZZ Dilation of Coronary Artery, One Artery, Percutaneous Approach (ICD-10-PCS; principal; 2018-04-25)
PROC: 02C03ZZ Extirpation of Matter from Coronary Artery, One Artery, Percutaneous Approach (ICD-10-PCS; 2018-04-25)
PROC: 4A023N7 Measurement of Cardiac Sampling and Pressure, Left Heart, Percutaneous Approach (ICD-10-PCS; 2018-04-25)
PROC: B2111ZZ Fluoroscopy of Multiple Coronary Arteries using Low Osmolar Contrast (ICD-10-PCS; 2018-04-25)
PROC: B2151ZZ Fluoroscopy of Left Heart using Low Osmolar Contrast (ICD-10-PCS; 2018-04-25)
DX: I21.4 Non-ST elevation (NSTEMI) myocardial infarction (principal); T82.867A Thrombosis due to cardiac prosthetic devices, implants and grafts, initial encounter; N17.9 Acute kidney failure, unspecified; R04.2 Hemoptysis; Z95.5 Presence of coronary angioplasty implant and graft; F17.210 Nicotine dependence, cigarettes, uncomplicated; Z88.0 Allergy status to penicillin; Z79.899 Other long term (current) drug therapy; Z79.82 Long term (current) use of aspirin; E86.0 Dehydration; E87.6 Hypokalemia; R00.0 Tachycardia, unspecified; E87.5 Hyperkalemia; Z91.14 Patient's other noncompliance with medication regimen; Z91.19 Patient's noncompliance with other medical treatment and regimen; Z79.02 Long term (current) use of antithrombotics/antiplatelets; E78.5 Hyperlipidemia, unspecified
CPT/HCPCS: 36415; 71045; 80053; 80061; 80069; 80306; 81003; 82553; 83735; 84484; 85025; 85347; 92924; 92977; 93005; 93010; 93306; 93454; 93798; 94760; 99152; 99153; C1757; C1769; C1887; J1644; J1650; J2001; J2250; J2270; J2405; J3010; J3246; Q0162

== ENCOUNTER 2018-06-12 08:39 | Observation (INO) | payer SELFPAY ==
[2018-06-12] MEDS ORDERED: Nitroglycerin 0.4 MG TAB (25 Tab Bottle) ONE (08:49)
[2018-06-12 08:53] LABS: #Basophils 0.1 thou/uL (0.0-0.2); #Eosinphils 0.2 thou/uL (0.0-0.7); #Lymphocytes 1.4 thou/uL (1.20-3.40); #Monocytes 0.4 thou/uL (0.11-0.59); #Neutrophils 2.7 thou/uL (1.40-6.50); %Basophils 1.3 % (0.0-1.0); %Eosinophils 3.4 % (0.0-10.0); %Monocytes 9.3 % (0.0-10.0); %Neutrophils 56.1 % (42.0-75.0); Hemoglobin 15.2 g/dL (14.0-18.0); Mean Corpuscular HGB CONC 33.7 g/dL (32.0-36.0); Mean Corpuscular Hemoglobin 29.8 pg (27.0-31.0); Mean Corpuscular Volume 88.3 fL (78.0-98.0); Mean Platelet Volume 8.6 fL (7.4-10.4); Platelet Count 293 thou/uL (130-400); RBC Distribution Width 12.7 % (11.5-14.5); White Blood Cell (WBC) Count 4.8 thou/uL (4.8-10.8)
--- NOTE | 2018-06-12 08:54 | RAD ---
UPRIGHT FRONTAL CHEST RADIOGRAPH: Date: 06/12/18 COMPARISON: 04/24/18. HISTORY: Chest pain, myocardial infarction. FINDINGS: No pneumothorax, pleural fluid, focal consolidation, or alveolar edema. Heart and mediastinal contour s are stable. IMPRESSION: No acute findings. POS: [facility]
[2018-06-12] MEDS ORDERED: Heparin 0 ML ONE (08:56)
[2018-06-12] MEDS ORDERED: Aspirin 325 MG TAB PO SCH (09:00)
[2018-06-12 09:01] LABS: INR-International Normal Ratio 1.1; PTT 26.2 SEC (22.9-36.1); Prothrombin Time 13.9 SEC (12.0-14.7)
[2018-06-12 09:08] LABS: ALT (SGPT) 33 U/L (8-55); AST (SGOT) 38 U/L (5-34); Albumin 4.8 g/dL (3.5-5.0); Alkaline Phosphatase 68 U/L (40-150); Anion Gap 16 mmol/L (10-20); BUN (Urea Nitrogen) 14 mg/dL (8.9-20.6); Bilirubin, Total 0.7 mg/dL (0.2-1.2); CK (CPK) 1092 U/L (30-200); Calc. Creatinine Clearance 0 mL/min (70-130); Calcium 10.4 mg/dL (7.8-10.44); Carbon Dioxide 21 mmol/L (22-29); Chloride 104 mmol/L (98-107); Estimated GFR-MDRD 62; Globulin 3.1 g/dL (2.4-3.5); Glucose 114 mg/dL (70-105); Potassium 4.1 mmol/L (3.5-5.1); Protein, Total 7.9 g/dL (6.0-8.3); Sodium 137 mmol/L (136-145)
[2018-06-12] MEDS ORDERED: Acetaminophen 325 MG TAB PO PRN (09:47)
[2018-06-12] MEDS ORDERED: Sodium Chloride 0.9% 1,000 ML IV SCH (09:47)
[2018-06-12] MEDS ORDERED: Guaifenesin DM 100-10/5 ML UDCUP PO PRN (09:47)
[2018-06-12 10:41] LABS: Troponin I 0.025 ng/mL (< 0.028)
--- NOTE | 2018-06-12 11:12 | HP ---
REASON FOR ADMISSION: Atypical chest pain. HISTORY OF PRESENTING ILLNESS: The patient gives history of shortness of breath from last hour and half now. He also developed right-sided neck and shoulder pain. The patient admits to snorting cocaine 3 times yesterday after he got mad with his girlfriend. No complaints of chest pain as such. No palpitations, PND, or orthopnea. He is oriented well at present. He states he is compliant with his medications after he had stents placed in April of last year. He has never used cocaine before per patient. No cough or expectoration. No fever. PAST MEDICAL AND SURGICAL HISTORY: History of coronary artery disease with prior STEMI and 2 stents placed to LAD with in-stent stenosis and thrombectomy, dyslipidemia, and hypertension. CURRENT MEDICATIONS: 1. Aspirin 81 mg p.o. daily. 2. Atorvastatin 10 mg daily. 3. Pepcid 20 mg twice daily. 4. Toprol-XL 50 mg daily. ALLERGIES: ALLERGIC TO PENICILLIN. PERSONAL HISTORY: Quit smoking in April of last year after he had stents placed. He drinks only on social occasions on the weekends. Admits to using cocaine yesterday, but does not use on a regular basis. Denies using any other drugs. Lives with his girlfriend. FAMILY HISTORY: Mother at the age of 68 years. She had diabetes and pancreatic cancer. Father is living and healthy. Code status is full. Power of commercial real estate attorney is his father, Mr. Flex Almonte. REVIEW OF SYSTEMS: CONSTITUTIONAL: Negative for weight loss or gain, ability to conduct usual activities. SKIN: Negative for rash, itching. EYES: Negative for double vision, pain. ENT/MOUTH: Negative for nose bleeding, neck stiffness, pain, tenderness. CARDIOVASCULAR: Negative for palpitations, dyspnea on exertion, orthopnea. RESPIRATORY: Negative for shortness of breath, wheezing, cough, hemoptysis, fever or night sweats. GASTROINTESTINAL: Negative for poor appetite, abdominal pain, heartburn, nausea , vomiting, constipation, or diarrhea. GENITOURINARY: Negative for urgency, frequency, dysuria, nocturia. MUSCULOSKELETAL: Negative for pain, swelling. NEUROLOGIC/PSYCHIATRIC: Negative for anxiety, depression. ALLERGY/IMMUNOLOGIC: Negative for skin rash, bleeding tendency. PHYSICAL EXAMINATION: GENERAL: The patient is a 47-year-old male who is currently not in any acute distress. VITAL SIGNS: Blood pressure 106/70, pulse 64 per minute, respiratory rate 14 per minute, temperature 98.8 degrees Fahrenheit, saturating 98% on room air. NECK: Supple. No elevated JVD. EYES: Extraocular muscles intact. Pupils reacting to light. Oral cavity, mucous membranes are moist. No exudates or congestion. CARDIOVASCULAR: S1 and S2 heard. Regular rhythm. RESPIRATORY: Air entry 1+ bilateral. Scattered rhonchi, plus no rales or wheezes. ABDOMEN: Soft. Bowel sounds heard. No tenderness, rigidity, or guarding. EXTREMITIES: No peripheral edema or calf tenderness. VASCULAR: Peripheral pulses 2+ bilateral. No ischemic ulcerations or gangrene. CENTRAL NERVOUS SYSTEM: No gross focal deficits noted. The patient is alert, awake, and oriented well. PSYCHIATRIC: The patient's mood is euthymic. No hallucinations or delusions. DIAGNOSTIC DATA: EKG done shows mild ST elevation seen in V2 and V3 and T- inversion seen in V4. He is in normal sinus rhythm. Chest x-ray, no acute cardiopulmonary abnormality. LABORATORY DATA: CK level is 1092. Troponin I 0.02. Albumin is 4.8. BUN 14, creatinine 1.46, serum bicarb 21, potassium 4.1. PT, INR, and PTT within normal limits. Hemoglobin and hematocrit 15 and 45, platelet count 293, white count of 4.8, MCV is 88 with 56% neutrophils. CLINICAL IMPRESSION AND PLAN: The patient will be under observation on telemetry for atypical chest pain. He also abused cocaine yesterday as well. He has known history of coronary artery disease with prior stents placed to left anterior descending artery in the past. He was evaluated by Dr. Silva for suspected ST-segment elevation myocardial infarction activation in the anterolateral wall. The patient states he is compliant with medications. He has quit smoking from April. He had one time usage of cocaine yesterday. Currently, he has no chest pain or palpitations at present. He will be on full dose aspirin, nitroglycerin paste half-inch q.8 hourly, gentle hydration with normal saline at 70 mL per hour. The patient has mild rhabdomyolysis and mild acute kidney injury, both of which should resolve with gentle hydration. Echo with 2D Doppler has been ordered by Dr. Silva, and we will follow up on that. Two more sets of troponin to be trended. Dr. Silva has evaluated the patient in the ER and has declared it is not a STEMI at present. If the patient were to be hemodynamically stable and echo shows no new changes, he can be discharged safely in the morning. Job ID: [id number] [id number]
[2018-06-12] MEDS ORDERED: Ondansetron ODT 4 MG TAB PO PRN (11:54)
[2018-06-12] MEDS ORDERED: Ondansetron PF 4 MG/2 ML Vial IVP PRN (11:54)
--- NOTE | 2018-06-12 12:19 | CON ---
DATE OF CONSULTATION: HISTORY: Je Almonte is a 47-year-old black male with a complicated medical history over the last 2 months. On April 16, 2018, he was driving to work, started having onset of central chest pressure. When he got to work, he tried to get up and walk; however, every time he tried to walk he had recurrence of the central chest pressure associated with shortness of breath and diaphoresis, but no nausea or vomiting. With rest, the discomfort would resolve in a few minutes. The scenario repeated itself multiple times. Coworkers called EMS. He was given aspirin as well as sublingual nitroglycerin. He did not have any further episodes of chest discomfort. He underwent Cardiolite treadmill test and exercised for 10 minutes without chest pain or ST-segment changes. Cardiolite revealed a small area of decreased radiotracer in the distal anteroseptal wall with complete reversibility compatible with ischemia. He then underwent cardiac catheterization. He had mild anterior hypokinesis. In the LAD, there was an 80% proximal stenosis and a 70% and 60% mid stenosis. There was a 30% mid RCA stenosis. He underwent placement of two stents in the LAD-REBEL (bare metal stent) 3.0 x 32, and 3.0 x 8. Final result was excellent, and he was discharged the following day. After being home, he denied any chest discomfort until April 24, 2018. He stated that he has been taking all of his medicines include aspirin and Plavix. He continues to intermittently smoke. On April 24, he started to have onset of central chest pressure associated with shortness of breath, diaphoresis after an argument with his daughter. He came to the emergency room approximately 3 hours later. He had new Q-waves and V1 to V3 along with somewhat hyperacute T-waves with 2-mm of ST-segment elevation in V4. The anteroseptal Q-waves were new from the EKG the week before. His initial cardiac enzymes were normal and they started to trend upwards. The pain lasted from 4:00 p.m., the day prior to admission until approximately 3:00 a.m. He denied any chest discomfort. He received a dose of Lovenox 1 mg/kg 1 hour before I saw him. Despite just receiving Lovenox, with his EKG changes, felt that he would need to go to the lab assistant. He was found to have acute stent thrombosis. The stent was dilated with Emerge NC 3.0 x 30 mm balloon. There appeared to be a large thrombus proximal to the stent. The balloon was carefully removed, and an [place] catheter was inserted. Three passes were made with removal of large amount of thrombotic material. He was given Brilinta 180 mg. PTCA balloon was then reinserted and the final result was excellent. He was changed to Brilinta and discharged on that. He did have peak MB of 342.3 and a peak troponin I of 141.751. Echocardiogram prior to discharge revealed ejection fraction of 40% to 45% with hypokinesis of the anteroseptal wall, moderate mitral regurgitation, mild tricuspid regurgitation. He reportedly took cocaine last night. He complained of increased shortness of breath, and the EMS was called. He denies any chest discomfort like he was having during the previous two admissions. PAST MEDICAL HISTORY: No history of hypertension, hypercholesterolemia, or diabetes. MEDICATIONS: When he was recently discharged include; 1. Brilinta 90 mg b.i.d. 2. Aspirin 81 daily. 3. Famotidine 20 mg b.i.d. 4. Metoprolol 12.5 mg daily. 5. Atorvastatin 20 daily. ALLERGIES: PENICILLIN. SOCIAL HISTORY: He smokes 1 pack per day but continues to intermittently smoke. He drinks 12 beers on the weekend. Works in [employer]. FAMILY HISTORY: Mother had myocardial infarction. REVIEW OF SYSTEMS: Unremarkable. PHYSICAL EXAMINATION: VITAL SIGNS: Blood pressure 120/70, pulse 90. HEENT: PERRL. NECK: Supple. CHEST: Clear. CARDIAC: S1 and S2 normal without any S3, S4, or murmurs. ABDOMEN: Normal bowel sounds. EXTREMITIES: Revealed no clubbing, cyanosis, or edema. NEUROLOGIC: Grossly intact. SKIN: Warm and dry. LABORATORY DATA: EKG reveals normal sinus rhythm with Q-waves, V1 to V3 with [address]-elevation in V2 and V3, as well as inverted T-waves in V3 and V4. No blood work is available at the present time. IMPRESSION: 1. 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 He is not having any chest discomfort, and I do not feel that this represents an ST-elevation myocardial infarction. 2. Status post bare metal stent placement in the proximal and mid left anterior descending in March 2018. He then returned with acute stent thrombosis and had developed new Q-waves anterolaterally after he was home with prolonged chest pain. 3. Smoker. 4. Questionable cocaine use yesterday. 5. Positive family history. PLAN: I do not feel that this represents a STEMI and I do not feel that he needs to go to the lab assistant acutely when he does not have any chest discomfort and his EKG changes are probably evolutionary from his infarct a month ago. Echocardiogram will be performed to reassess left ventricular function. At the present time, he has been sent for further evaluation with I believe a CT angiogram. Job ID: [id number]
[2018-06-12 12:36] LABS: Troponin I 0.019 ng/mL (< 0.028)
[2018-06-12] MEDS: Nitroglycerin 2% Ointment 1 INCH/1 GM Packet TOP SCH ×2 (13:52→21:20)
[2018-06-12 16:22] LABS: Amphetamine Not Detected (NotDetected); Barbiturates Screen Not Detected (NotDetected); Benzodiazepine Screen Not Detected (NotDetected); Cocaine Metabolite Screen Detected (NotDetected); Medtox Control Line Valid? VALID (VALID); Medtox Reader # READER 1; Methadone Not Detected (NotDetected); Methamphetamine Not Detected (NotDetected); Opiate Screen Not Detected (NotDetected); Oxycodone Screen Not Detected (NotDetected); Phencyclidine (PCP) Not Detected (NotDetected); THC/Cannabinoid Screen Not Detected (NotDetected); Tricyclic Screen Not Detected (NotDetected)
[2018-06-12] MEDS ORDERED: Atorvastatin Calcium 20 MG TAB PO SCH (21:00)
[2018-06-12] MEDS: Famotidine 20 MG TAB PO SCH (21:16)
[2018-06-12] MEDS ORDERED: TICAGRELOR 90 MG TABLET PO SCH (21:45)
[2018-06-13 05:25] LABS: #Eosinphils 0.3 thou/uL (0.0-0.7); #Lymphocytes 1.5 thou/uL (1.20-3.40); #Monocytes 0.4 thou/uL (0.11-0.59); #Neutrophils 1.6 thou/uL (1.40-6.50); %Basophils 0.5 % (0.0-1.0); %Eosinophils 7.8 % (0.0-10.0); %Lymphocytes 39.4 % (21.0-51.0); %Monocytes 10.1 % (0.0-10.0); %Neutrophils 42.2 % (42.0-75.0); Hemoglobin 13.7 g/dL (14.0-18.0); Mean Corpuscular HGB CONC 33.6 g/dL (32.0-36.0); Mean Corpuscular Hemoglobin 30.1 pg (27.0-31.0); Mean Corpuscular Volume 89.7 fL (78.0-98.0); Platelet Count 248 thou/uL (130-400); RBC Distribution Width 12.7 % (11.5-14.5); Red Blood Cell (RBC) Count 4.56 mill/uL (4.70-6.10); White Blood Cell (WBC) Count 3.7 thou/uL (4.8-10.8)
[2018-06-13 05:46] LABS: Anion Gap 13 mmol/L (10-20); BUN (Urea Nitrogen) 17 mg/dL (8.9-20.6); Calc. Creatinine Clearance 95 mL/min (70-130); Calcium 8.9 mg/dL (7.8-10.44); Carbon Dioxide 23 mmol/L (22-29); Cardiac Risk 2.4 (Less than 4.5); Chloride 104 mmol/L (98-107); Cholesterol 125 mg/dl (< 200 Desired); Estimated GFR-MDRD 74; Glucose 106 mg/dL (70-105); HDL Cholesterol 52 mg/dL (>60 Neg Risk); LDL Cholesterol, Calculated 64 mg/dL; Potassium 3.7 mmol/L (3.5-5.1); Sodium 136 mmol/L (136-145); Triglycerides 45 mg/dL (Less than 150)
[2018-06-13] MEDS: Nitroglycerin 2% Ointment 1 INCH/1 GM Packet TOP SCH (07:24)
[2018-06-13 07:55] VITALS: BP 99/54; TEMP 98
[2018-06-13] MEDS: Famotidine 20 MG TAB PO SCH (08:19)
[2018-06-13] MEDS ORDERED: TICAGRELOR 90 MG TABLET PO SCH (09:00)
[2018-06-13] MEDS ORDERED: Aspirin 81 mg Enteric Coated Tablet PO SCH (09:00)
[2018-06-13] MEDS ORDERED: Enoxaparin Sodium 40 MG/0.4 ML SYRINGE SC SCH (09:00)
--- NOTE | 2018-06-13 13:17 | DIS ---
DATE OF ADMISSION: 06/12/2018 DATE OF DISCHARGE: 06/13/2018 DISCHARGE DISPOSITION: To home. PRIMARY DISCHARGE DIAGNOSES: Atypical chest pain, resolved; cocaine abuse. SECONDARY DISCHARGE DIAGNOSES: Coronary artery disease with prior stent placed to left anterior descending artery x2, dyslipidemia, hypertension. PROCEDURES DONE DURING HOSPITALIZATION: The patient had chest x-ray done which showed no acute cardiopulmonary abnormalities. Echo with 2D Doppler done showed hypokinesis of anteroseptal wall with akinetic motion of the apical wall. Moderate mitral regurgitation was seen. Ejection fraction was 40% to 45%. Hemoglobin and hematocrit 13 and 40, platelet count 248, MCV 89. BUN 14, creatinine 0.46. Total cholesterol 125, triglycerides 45, LDL 64, HDL 52. CK levels were 1092 on admission. Troponin x3 negative. BNP 20. Urine tox screen was positive for cocaine metabolites. DISCHARGE MEDICATIONS: 1. Aspirin 81 mg p.o. daily. 2. Brilinta 90 mg twice daily. 3. Lipitor 20 mg p.o. at bedtime. 4. Pepcid 20 mg twice daily. 5. Lasix 20 mg daily. 6. Toprol-XL 12.5 mg p.o. daily. ALLERGIES: ALLERGIC TO PENICILLIN. DISCHARGE PLAN: The patient to follow up with Dr. Silva tomorrow and primary care physician in 1 week. BRIEF COURSE DURING HOSPITALIZATION: The patient initially got admitted on the with complaints of shortness of breath and right-sided neck and shoulder pain. In view of the patient's history of coronary artery disease with prior stent placed to LAD and noncompliance, the patient was placed under observation. Also, STEMI was activated on arrival due to mild ST elevation seen in anterolateral leads. The patient did not have any chest pain. His troponins x3 were negative. His EKG changes likely were evolutionary changes from his infarct a month ago. He was evaluated by Dr. Silva in the ER. No further cardiac procedures were done for him. He is ambulating and eating well prior to discharge. A repeat echo done showed hypokinesis in the anterolateral wall and akinesis of the apical wall. Prior to discharge, I have discussed his findings with Dr. Silva, and the patient will be placed on low dose of Lasix. In view of his systolic blood pressures trending in the 100, he has been advised to check blood pressure and pulse twice daily and record for a period of 10 days to follow up with primary care physician. He has also been instructed to discontinue Lasix if he gets dizzy. He was counseled with regard to substance use and medication compliance. Please note I have seen and examined patient on the day of discharge. Job ID: [id number] MTDD
--- NOTE | 2018-06-16 17:21 | EKG ---
Test Reason : Blood Pressure : / mmHG Vent. Rate : 071 BPM Atrial Rate : 071 BPM P-R Int : 168 ms QRS Dur : 088 ms QT Int : 444 ms P-R-T Axes : 048 002 067 degrees QTc Int : 482 ms Normal sinus rhythm with sinus arrhythmia ST segment elevation V1-V4 Anteroseptal infarct , age undetermined Abnormal ECG Confirmed by QUEENIE ZAZUETA ([id number]), map editor JOAQUINA MCLEOD ([id number]) on 06/16/2018 5:21:19 PM Referred By: Confirmed By:QUEENIE ZAZUETA
== END 2018-06-13 11:33 | disposition home or self-care (01) ==
LOC: ERS 08:39 → 2SW 09:50
PROVIDERS: ADMIT Internal Medicine; ATTEND Internal Medicine
DX: R07.89 Other chest pain (principal); F14.10 Cocaine abuse, uncomplicated; I25.10 Atherosclerotic heart disease of native coronary artery without angina pectoris; I25.2 Old myocardial infarction; E78.5 Hyperlipidemia, unspecified; I10 Essential (primary) hypertension; F17.210 Nicotine dependence, cigarettes, uncomplicated; M62.82 Rhabdomyolysis; N17.9 Acute kidney failure, unspecified; Z79.02 Long term (current) use of antithrombotics/antiplatelets; Z79.82 Long term (current) use of aspirin; Z79.899 Other long term (current) drug therapy; Z88.0 Allergy status to penicillin; Z95.5 Presence of coronary angioplasty implant and graft; Z98.890 Other specified postprocedural states
CPT/HCPCS: 36415; 71045; 80048; 80053; 80061; 80306; 82550; 83880; 84484; 85025; 85610; 85730; 93005; 93306; 94760; 96360; 96361; 96372; G0378; J1644; J1650